=== PATIENT | male | born 1965 | race Caucasian/White ===

== ENCOUNTER 2020-01-14 13:28 | Emergency (ER) | payer OTHER ==
[~2020-01-14] VITALS: Ht 170.2 cm; Wt 90.0 kg
[2020-01-14] MEDS ORDERED: SODIUM CHLORIDE 0.9% 1,000 ML IV ONE (13:35)
[2020-01-14 13:54] LABS: EOSINOPHILS % 4.1 % (0.0-5.0); HEMATOCRIT. 29.1 % (42.0-52.0); HEMOGLOBIN. 9.8 g/dL (14.0-18.0); LYMPHOCYTES % 43.7 % (20.0-50.0); MEAN CORPUSCULAR HEMOGLOBIN 27.7 pg (28.0-32.0); MEAN CORPUSCULAR VOLUME 82.5 fL (80.0-94.0); MEAN PLATELET VOLUME 8.5 fl (7.4-10.4); MONOCYTES % 13.1 % (2.0-8.0); NEUTROPHILS % 38.1 % (40.0-76.0); PLATELET 95 x1000/uL (130-400); RED BLOOD CELL COUNT 3.53 mill/uL (4.7-6.1); RED CELL DISTRIBUTION WIDTH 18.9 % (11.6-14.6)
[2020-01-14 13:56] LABS: INR 1.2; PROTHROMBIN TIME 13.3 sec (9.6-11.0)
[2020-01-14 13:57] LABS: CHLORIDE 109 mEq/L (98-107)
[2020-01-14] MEDS ORDERED: NALOXONE HCL 1 MG/ML 2ML VIAL IV ONE (14:00)
[2020-01-14] MEDS ORDERED: NALOXONE HCL 0.4 MG/ML 1ML VIAL IV ONE (14:00)
[2020-01-14 14:01] LABS: ETHANOL BLOOD 207 mg/dL
[2020-01-14 14:15] LABS: CLARITY URINE CLEAR (CLEAR); COLOR URINE YELLOW (YELLOW); KETONES URINE NEGATIVE (NEGATIVE); LEUKOCYTE ESTERASE URINE NEGATIVE (NEGATIVE); NITRITE URINE NEGATIVE (NEGATIVE); OCCULT BLOOD URINE NEGATIVE (NEGATIVE); PROTEIN URINE 2+ (NEGATIVE); SPECIFIC GRAVITY URINE 1.018 (1.005-1.030)
[2020-01-14] MEDS ORDERED: POTASSIUM CHLORIDE 20MEQ TABLET SR PO NR (14:45)
[2020-01-14 15:09] LABS: *AMPHETAMINES SCREEN URINE PRESUMTIVE POSITIVE (NEGATIVE); *BARBITURATES SCREEN URINE NEGATIVE (NEGATIVE); *BENZODIAZEPINES SCREEN URINE NEGATIVE (NEGATIVE); *COCAINE SCREEN URINE NEGATIVE (NEGATIVE); OPIATES URINE SCREEN PRESUMTIVE POSITIVE (NEGATIVE)
[2020-01-14 15:10] LABS: CANNABINOID URINE SCREEN NEGATIVE (NEGATIVE)
[2020-01-14 15:28] LABS: METHADONE URINE SCREEN NEGATIVE (NEGATIVE); PHENCYCLIDINE URINE SCREEN NEGATIVE (NEGATIVE)
[2020-01-14] MEDS ORDERED: CLONIDINE 0.1MG TABLET PO PRN (18:30)
[2020-01-14] MEDS ORDERED: LORAZEPAM 2MG/ML CPJ IV PRN (18:30)
[2020-01-14] MEDS ORDERED: IPRATROPIUM/ALBUTEROL 0.5-3(2.5)MG/3ML NEB HHN PRN (18:30)
[2020-01-14] MEDS ORDERED: ONDANSETRON HCL 4MG/2ML INJ IV PRN (18:30)
[2020-01-14] MEDS ORDERED: DIPHENHYDRAMINE 50MG/ML VIAL IV PRN (18:30)
[2020-01-14] MEDS ORDERED: ACETAMINOPHEN 325MG TABLET PO PRN (18:30)
[2020-01-14] MEDS ORDERED: MVI, ADULT NO.1 10 ML, FOLIC ACID 1 MG, THIAMINE HCL 100 MG in SODIUM CHLORIDE 0.9% 1,0... IV SCH ×4 (18:39)
[2020-01-14 18:52] LABS: BG BASE EXCESS -3.1 mmol/L (-2.0-2.0); BG DEOXYHEMOGLOBIN 5.5 % (0.0-5.0); BG FRACTION INSPIRED OXYGEN 21; BG HCO3 ACT 22.7 mmol/L (22.0-26.0); BG METHEMOGLOBIN 0.2 % (0.0-1.5); BG OXYGEN SATURATION 94.5 % (92.0-98.5); BG OXYHEMOGLOBIN 94.3 % (94.0-97.0); BG PCO2 43.9 mmHg (35.0-45.0); BG PH 7.332 (7.350-7.450); BG SAMPLE SITE RIGHT BRACHIAL; BG TOTAL HEMOGLOBIN 10.8 g/dL (12.0-18.0); BG VENT MODE ROOM AIR
[2020-01-14 20:33] LABS: PHOSPHORUS 3.8 mg/dL (2.5-4.9)
[2020-01-14] MEDS ORDERED: CHLORDIAZEPOXIDE 25MG CAPSULE PO SCH (22:00)
[2020-01-15 00:39] LABS: CREATINE KINASE 307 IU/L (39-308)
[2020-01-15 00:40] LABS: CREATINE KINASE MB FRACTION 3.7 ng/mL (0.5-3.6)
[2020-01-15 05:19] LABS: BASOPHILS % 0.9 % (0.0-2.0); EOSINOPHILS % 2.6 % (0.0-5.0); HEMATOCRIT. 28.4 % (42.0-52.0); HEMOGLOBIN. 9.6 g/dL (14.0-18.0); LYMPHOCYTES % 29.3 % (20.0-50.0); MEAN CORPUSCULAR HEMOGLOBIN 28.3 pg (28.0-32.0); MEAN CORPUSCULAR VOLUME 84.1 fL (80.0-94.0); MONOCYTES % 14.6 % (2.0-8.0); NEUTROPHILS % 52.6 % (40.0-76.0); PLATELET 71 x1000/uL (130-400); RED BLOOD CELL COUNT 3.38 mill/uL (4.7-6.1); RED CELL DISTRIBUTION WIDTH 19.1 % (11.6-14.6)
[2020-01-15 05:22] LABS: CHLORIDE 105 mEq/L (98-107)
[2020-01-15 05:33] LABS: LDL CHOLESTEROL 60 mg/dL (5-100)
[2020-01-15 05:35] LABS: CREATINE KINASE 316 IU/L (39-308); HDL CHOLESTEROL 37 mg/dL (40-59)
[2020-01-15 05:38] LABS: CREATINE KINASE MB FRACTION 3.4 ng/mL (0.5-3.6)
[2020-01-15] MEDS ORDERED: CHLORDIAZEPOXIDE 25MG CAPSULE PO NR (07:45)
[2020-01-15 11:15] VITALS: BP 104/76
[2020-01-15] MEDS ORDERED: AZITHROMYCIN 500 MG in DEXT 5% WATER 250 ML IV SCH (12:45)
[2020-01-15] MEDS ORDERED: CHLORDIAZEPOXIDE 25MG CAPSULE PO SCH (14:00)
[2020-01-15] MEDS ORDERED: SODIUM BICARBONATE 8.4% 1 MEQ/ML 50ML SYR IV ONE (15:04)
== END 2020-01-15 14:44 | disposition left against medical advice (07) ==
LOC: ER 13:28 → EDBD 13:28 → CANBEDREQ 01-15 12:15 → ER 01-15 14:44
DX: F19.10 Other psychoactive substance abuse, uncomplicated (principal); R41.82 Altered mental status, unspecified; F10.129 Alcohol abuse with intoxication, unspecified; D64.9 Anemia, unspecified; E87.6 Hypokalemia; D69.6 Thrombocytopenia, unspecified; Y90.7 Blood alcohol level of 200-239 mg/100 ml; R74.0 Nonspecific elevation of levels of transaminase and lactic acid dehydrogenase [LDH]
CPT/HCPCS: 36415; 36600; 70450; 71045; 80053; 80061; 80305; 80320; 81003; 82375; 82550; 82553; 82805; 82962; 83735; 84100; 84443; 84484; 85025; 85610; 93005; 96365; 96366; 96375; 99285; J2310; J2405; J3411; J3490; J7030; Z7610; G0480